=== PATIENT | male | born 1945 | race Caucasian/White ===

== ENCOUNTER → 2016-07-10 | Outpatient (CLI) | payer MEDICARE, OTHER ==
[~2016-07-10] MED LIST: ALFU10TA2 PO; B-COINJ IJ; CODCAP PO; GINK40TA3 PO; HYDR25TAB PO; METF500T PO; SALM1000 PO; SAW450CA7 PO; SIMV40TA2 PO; UROXATRAL PO; VITA100037 PO
--- NOTE | 2016-07-10 14:16 | REP ---
WHOLE BODY BONE SCAN: Following the intravenous administration of 22 millicuries technetium 99m MDP, the patient's whole body is imaged in the anterior and posterior projections with additional oblique images of the thoracic and pelvic regions performed as well as lateral views of the calvarium. Recent MRI of the cervical spine showed possible metastatic lesions in the C6 and C7 vertebral bodies. On the lateral views of the calvarium, there does appear to be increased uptake in the lower cervical spine suspicious for metastatic lesion in the left iliac bone. There is somewhat elongated heterogenous increased uptake in the posterior left 9th rib suspicious for metastatic lesion. Increased uptake is seen in the medial aspect of both clavicles, which may be related to arthritic change but underlying metastatic lesions cannot be completely excluded. There is increased uptake at both shoulders suggesting bilateral arthritic change. There is a small focus of increased uptake in the right maxilla, which is most likely related to the patient's dentition. Renal and bladder activity are seen. IMPRESSION: Increased uptake in the lower cervical spine may represent metastatic lesions as seen on the MRI of the cervical spine recently. Increased uptake in the posterior left 9th rib and medial left iliac bone suspicious for metastatic lesions. Increased uptake in the medial aspect of both clavicles probably is related to arthritic change at the sternoclavicular joints, although the uptake is somewhat intense and underlying metastatic lesion cannot be completely excluded. Signed by Gilson Qureshi MD 07/10/2016 08:02 P
== END ==
LOC: M RAD 09:30
PROVIDERS: ATTEND Emergency Medicine
DX: R93.7 Abnormal findings on diagnostic imaging of other parts of musculoskeletal system (principal)
CPT/HCPCS: 78306; A9503

== ENCOUNTER 2016-09-15 13:56 | Outpatient (RCR) | payer MEDICARE, OTHER ==
[~2016-09-15 13:56] MED LIST changes: -ATEN25TA PO; -ATIV1TAB10 PO; -DEXA4TA PO; -GABA-282 PO; -HYOS1TAB PO; -MORP15TASA PO; -MORP1SOL PO; -TRAM50TA2 PO; -VOTRIENT; -VOTRIENT PO
--- NOTE | 2016-09-15 14:31 | RADONC ---
RADIATION ONCOLOGY SIMULATION NOTE DATE: 09/15/2016 CHART NUMBER: [id number] Mr. Diaz was taken to the CT scan for CT simulation of his cervical/upper thoracic spine. CT was accomplished without difficulty or discomfort. Radiation treatment planning is underway, and radiation treatments will begin subsequently. In addition, the patient underwent CT simulation of his bilateral femur mckeon today as well. CT of these areas was completed without difficulty or discomfort. Radiation treatment planning is also underway to these areas and will continue as scheduled. An immobilization device was created and will be used throughout the course of treatment. I was physically present throughout the course of CT simulation of both sites.
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
--- NOTE | 2016-09-21 16:03 | RADONC ---
RADIATION ONCOLOGY PROGRESS NOTE DATE: 09/21/2016 CHART NUMBER: [id number] Mr. Diaz is presently at a dose of 900 cGy to his spine and bilateral femurs and is tolerating treatments quite well at this point with no complaints related to his radiation therapy. He is having no nausea, vomiting or other problems. He continues to have back and hip pain. The patient's review of systems is positive for the physical limitations secondary to bone pain but is otherwise noncontributory. He denies nausea, vomiting, fevers, chills, night sweats, diplopia, headaches, anxiety or depression, anorexia, weight loss, visual disturbances, chest pain, urinary or bowel difficulties, bone pain, or neurological problems. PHYSICAL EXAMINATION: The patient's skin is in good condition with no evidence of radiation change present. There is no moist dry desquamation. The remainder of his physical exam remains unchanged. I had a lengthy discussion with the patient and his regarding the advanced nature of his disease and the risk for bone breaking. 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 I have showed him actual x-rays to show the extent of disease and the risks to each of his bones. We also discussed the possibility of palliative care at this point. He is aware that this treatment is not curative. The patient overall is tolerating treatments quite well and radiation will continue as scheduled. I discussed not treating the patient's hip as we do not wish to delay further his systemic treatment. The patient's hip and other bones can be treated at anytime in the future if he so chooses.
== END 2016-09-28 ==
LOC: M ONCR 13:56
PROVIDERS: ATTEND Radiology Radiation Oncology
DX: C79.51 Secondary malignant neoplasm of bone (principal); C64.1 Malignant neoplasm of right kidney, except renal pelvis

== ENCOUNTER → 2016-09-15 | Outpatient (CLI) | payer MEDICARE, OTHER ==
[~2016-09-15] MED LIST changes: +ATEN25TA PO; +ATIV1TAB10 PO; +DEXA4TA PO; +GABA-282 PO; +HYOS1TAB PO; -METF500T PO; +METF500T13 PO; +MORP15TASA PO; +MORP1SOL PO; +SAW450CA2 PO; -SAW450CA7 PO; +TRAM50TA2 PO; -VITA100037 PO; +VITA100067 PO; +VOTRIENT; +VOTRIENT PO
--- NOTE | 2016-09-29 07:47 | RADONC ---
RADIATION ONCOLOGY PROGRESS NOTE DATE: 09/28/2016 CHART NUMBER: [id number] Mr. Diaz is presently at a dose of 2400 cGy to his spine as well as is bilateral femurs and is tolerating treatments quite well at this point with no significant difficulties related to his radiation therapy other than some esophagitis. The patient's review of systems is positive for some discomfort upon swallowing as well as bone pain causing him physical limitations, but is otherwise noncontributory. He denies nausea, vomiting, fevers, chills, night sweats, diplopia, headaches, anxiety or depression, anorexia, weight loss, visual disturbances, chest pain, urinary or bowel difficulties, bone pain, or neurological problems. PHYSICAL EXAMINATION: The patient's skin is in good condition with no evidence of moist or dry desquamation. The remainder of his physical exam remains unchanged. Mr. Diaz is tolerating treatments quite well and radiation will continue as scheduled.
== END ==
LOC: M ONCR 09:51
PROVIDERS: ATTEND Radiology Radiation Oncology
DX: C64.9 Malignant neoplasm of unspecified kidney, except renal pelvis (principal)

== ENCOUNTER → 2016-09-15 | Outpatient (CLI) | payer MEDICARE, OTHER | LOC: M RAD 13:50 | PROVIDERS: ATTEND Radiology Radiation Oncology | DX: C64.9 Malignant neoplasm of unspecified kidney, except renal pelvis (principal) ==

== ENCOUNTER 2016-09-29 11:24 | Outpatient (RCR) | payer MEDICARE, OTHER ==
--- NOTE | 2016-09-30 15:27 | RADONC ---
RADIATION ONCOLOGY TREATMENT SUMMARY: DATE: 09/30/2016 CHART NUMBER: [id number] DIAGNOSIS: Renal cell cancer. STAGE: IV. ECOG PERFORMANCE STATUS: 3 Mr. 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 We treated the patient to his spine from the levels of C2-T4 for a dose of 3000 cGy delivered in 10 fractions of 300 cGy each over 13 elapsed days from 09/17/2016 through 09/30/2016. The patient's spine was treated on the linear accelerator utilizing an 18 MV photon beam via single posterior field prescribed to a depth of 8 cm. In addition, we treated to the patient to his bilateral femurs and pelvis for a dose of 3000 cGy delivered in 10 fractions of 300 cGy each again over 13 elapsed days from 09/17/2016 through 09/30/2016. Mr. Diaz tolerated his treatments quite well with no significant difficulties related to his radiation therapy. He was able to complete therapy as prescribed without interruption. Mr. Diaz is scheduled to be seen at [facility] for initiation of his systemic therapy. I have scheduled the patient to see me again in routine followup in 1 month. Thank you for allowing us to participate in the care of this very pleasant gentleman. If I could be of any further assistance please feel to contact me at anytime. As always warm regards, cc: MD Jak Agrawal MD Timothy Damron, MD Michael Kuettell, MD Rahul Seth,
== END 2016-10-29 ==
LOC: M ONCR 11:24
PROVIDERS: ATTEND Radiology Radiation Oncology
DX: C79.51 Secondary malignant neoplasm of bone (principal); C64.1 Malignant neoplasm of right kidney, except renal pelvis

== ENCOUNTER 2016-11-09 11:48 | Inpatient (IN) | payer MEDICARE, OTHER ==
[~2016-11-09] VITALS: Ht 161.3 cm; Wt 87.3 kg
[2016-11-09] MEDS ORDERED: VOTRIENT (12:02)
[2016-11-09] MEDS ORDERED: TRAM50TA2 PO (12:02)
[2016-11-09] MEDS ORDERED: GABA-282 PO (12:02)
[2016-11-09] MEDS ORDERED: NS 1,000 ML IV ONE (12:45)
[2016-11-09 13:39] LABS: BASO % 0.4 % (0.0-1.0); EOS % 0.7 % (0.0-3.0); LARGE UNSTAINED CELL # 0.1 K/mm3 (0.0-0.4); LYMPH # 0.3 K/mm3 (1.5-4.5); LYMPH % 4.8 % (24.0-44.0); MEAN CORPUSCULAR HEMOGLOBIN 30.5 pg (27.0-33.0); MEAN CORPUSCULAR HGB CONC 33.7 g/dl (32.0-36.5); MEAN CORPUSCULAR VOLUME 90.4 fl (80.0-96.0); MONO # 0.3 K/mm3 (0.0-0.8); NEUTROPHILS # 5.4 K/mm3 (1.8-7.7); NEUTROPHILS % 88.1 % (36.0-66.0); PLATELET COUNT, AUTOMATED 162 k/mm3 (150-450); RED CELL DISTRIBUTION WIDTH 15.8 % (11.5-14.5); WHITE BLOOD COUNT 6.1 K/mm3 (4.0-10.0)
--- NOTE | 2016-11-09 13:58 | REP ---
Clinical: History of metastatic renal carcinoma with dysuria. Comparison: 08/07/2016. Findings: Lung bases demonstrate bibasilar atelectasis and osseous metastatic disease involving the left ninth and eighth ribs as well as the inferior margin of the left scapula which appear more pronounced than prior examination. Liver, spleen, pancreas, gallbladder, bilateral adrenal glands are normal. Right renal mass measures 3.3 cm and appears essentially unchanged. Kidneys demonstrate perinephric stranding along with 2-3 mm nonobstructing intrarenal calculi. The enteric system is without obstruction or acute inflammatory process. Diverticulosis appreciated without acute diverticulitis. Pelvis demonstrates normal bladder and age appropriate prostate/seminal vesicles. No obvious intra-abdominal or pelvic adenopathy is appreciated. No ascites. No free air. Osseous metastatic foci involving T12, L3, the right lamina of L4, right iliac bone, left iliac bone/pelvis, left proximal femur, bilateral acetabula, right proximal femur have all significantly worsened. Specifically, the metastatic lesion in the T12 vertebral body extends through the posterior contour and into the spinal canal and the left iliac lesion measures greater than 11 cm and involves the adjacent musculature. Impression: 1. Markedly worsened metastatic disease related to right renal cell carcinoma as detailed above including a metastatic focus of the T12 body extending into the spinal canal. 2. Bilateral nonobstructing renal calculi. Right renal cell carcinoma. No hydronephrosis. 3. Diverticulosis without acute diverticulitis. 4. Bibasilar atelectasis. Signed by Kirill Rodriguez MD 11/09/2016 01:49 P
[2016-11-09 14:00] LABS: ALBUMIN/GLOBULIN RATIO 0.77 (1.00-1.93); ALKALINE PHOSPHATASE 99 U/L (45-117); ALT/SGPT 19 U/L (12-78); ANION GAP 10 MEQ/L (8-16); AST/SGOT 38 U/L (15-37); BILIRUBIN,DIRECT 0.3 MG/DL (0.0-0.2); BILIRUBIN,TOTAL 0.7 MG/DL (0.2-1.0); BLOOD UREA NITROGEN 16 MG/DL (7-18); CALCIUM LEVEL 9.1 MG/DL (8.8-10.2); CARBON DIOXIDE LEVEL 30 MEQ/L (21-32); CHLORIDE LEVEL 97 MEQ/L (98-107); GLOMERULAR FILTRATION RATE > 60.0 (>42); GLUCOSE, FASTING 163 MG/DL (83-110); POTASSIUM SERUM 3.2 MEQ/L (3.5-5.1); SODIUM LEVEL 137 MEQ/L (136-145); TOTAL PROTEIN 6.9 GM/DL (6.4-8.2)
[2016-11-09] MEDS ORDERED: VOTRIENT PO (14:20)
[2016-11-09] MEDS ORDERED: HYDR25TAB PO (14:20)
[2016-11-09] MEDS ORDERED: ATEN25TA PO (14:20)
[2016-11-09] MEDS ORDERED: MORPHINE 4 MG/ML 1ML SYRINGE IV ONE (15:00)
--- NOTE | 2016-11-09 17:20 | HPEPDOC ---
General Date of Admission 11/09/16 Primary Care Physician: DERRICK CARBAJAL MD Attending Physician: MARY GIRALDO Chief Complaint The patient is a 71-year-old male admitted with a reason for visit of Urinary Issue. History of Present Illness 71-year-old male with past medical history of widely metastatic clear cell renal carcinoma for which the patient follows with Dr. Nelson of radiation oncology for palliative radiation, and is also receiving palliative chemotherapy. The patient presented to the ER with a chief complaint of increased weakness and dysuria. The patient states that he had been up multiple times at night trying to urinate, but was unable to do so. He denies any flank pain, fevers, chills, chest pain, shortness of breath, palpitations, abdominal pain, or any nausea/vomiting/diarrhea. He also denied any complaints of fecal incontinence, saddle anesthesia, or any other numbness/tingling or focal weakness. In the ER, a CT scan of the abdomen revealed markedly worsened metastatic disease related to right renal cell carcinoma including a metastatic focus of the T12 body extending into the spinal canal. There were also bilateral nonobstructing renal calculi noted with no hydronephrosis. The patient was able to void ~300 cc's of urine in the ER without any difficulty. Dr. Nelson of radiation oncology was contacted with these results, and has requested an MRI of the lumbar spine with T12 imaging. Home Medications Scheduled ([place] Oil-1000 200 mg) 1 Cap Cap, 1 CAP PO DAILY, (Reported) Alfuzosin Hydrochloride (Alfuzosin HCl ER) 10 Mg Tab, 10 MG PO DAILY, (Reported) Atenolol (Atenolol) 25 Mg Tab, 25 MG PO DAILY, (Reported) Cod Liver Oil (Cod Liver Oil) 1 Cap Cap, 1 CAP PO DAILY, (Reported) Gabapentin (Gabapentin) 300 Mg Cap, 300 MG PO TID, (Reported) Ginkgo Biloba Extract (Ginkoba) 40 Mg Tab, 60 MG PO DAILY, (Reported) Hydrochlorothiazide (Hydrochlorothiazide) 25 Mg Tab, 25 MG PO DAILY, (Reported) Metformin Hydrochloride (Metformin HCl) 500 Mg Tab, 500 MG PO BID, (Reported) Serenoa Repens (Saw Bowdle/S (Saw Bowdle) 450 Mg Cap, 450 MG PO DAILY, ( Reported) Simvastatin - High Dose (Simvastatin) 40 Mg Tab, 40 MG PO QHS, (Reported) [Votrient] , 200 MG PO QID, (Reported) Scheduled PRN Tramadol HCl (Tramadol HCl) 50 Mg Tab, 50 MG PO QID PRN for PAIN, (Reported) Miscellaneous Medications Vitamin D (Vitamin D) 1,000 Unit Cap, 1,000 UNIT PO, (Reported) Allergies Coded Allergies: Nitroglycerin (Verified Allergy, Unknown, 11/09/16) Past Medical History Medical History As noted in HPI. Family History Significant Family History: No pertinent family hx Social History * Smoker: Denies Alcohol: Denies Drugs: denies Lives at home with his . Is functionally independent at baseline. Review of Symptoms Other systems 10 point review of systems negative unless otherwise specified in HPI. Physical Examination General Exam: Positive: Alert, Cooperative, No Acute Distress ENT Exam: Positive: Atraumatic, Mucous membr. moist/pink Neck Exam: Negative: JVD Chest Exam: Positive: Clear to auscultation, Normal air movement Heart Exam: Positive: Rate Normal, Normal S1 Abdomen Exam: Positive: Soft, Negative: Tenderness Extremity Exam: Negative: Tenderness, Swelling Psych Exam: Positive: Oriented x 3 Vital Signs Vital Signs Date Time Temp Pulse Resp B/P (MAP) Pulse Ox O2 Delivery O2 Flow Rate FiO2 11/09/16 15:02 18 Room Air 11/09/16 14:36 98.6 60 122/71 (88) 96 Laboratory Data Labs 24H Laboratory Tests 2 11/09/16 12:51: Lactic Acid Level 2.7*H 11/09/16 12:52: White Blood Count 6.1, Red Blood Count 4.25L, Hemoglobin 13.0L, Hematocrit 38.4L , Mean Corpuscular Volume 90.4, Mean Corpuscular Hemoglobin 30.5, Mean Corpuscular Hemoglobin Concent 33.7, Red Cell Distribution Width 15.8H, Platelet Count 162, Neutrophils (%) (Auto) 88.1H, Lymphocytes (%) (Auto) 4.8L, Monocytes (%) (Auto) 5.0, Eosinophils (%) (Auto) 0.7, Basophils (%) (Auto) 0.4, Neutrophils # (Auto) 5.4, Lymphocytes # (Auto) 0.3L, Monocytes # (Auto) 0.3, Eosinophils # (Auto) 0.0, Basophils # (Auto) 0.0, Large Unclassified Cells % 1.0 , Large Unclassified Cells # 0.1, Urine Appearance TURBIDH, Urine Color YELLOW, Urine pH 5.0, Urine Specific [place] 1.023, Urine Protein NEGATIVE, Urine Glucose (UA) NEGATIVE, Urine Ketones NEGATIVE, Urine Urobilinogen 2.0H, Urine Bilirubin NEGATIVE, Urine Leukocyte Esterase NEGATIVE, Urine Blood NEGATIVE, Urine Nitrite NEGATIVE, Urine WBC (Auto) 1, Urine RBC (Auto) 1, Urine Hyaline Casts (Auto) 0, Urine Bacteria (Auto) 3+H, Urine Squamous Epithelial Cells 0, Urine Mucus (Auto) LARGE, Urine Sperm (Auto) , Anion Gap 10, Glomerular Filtration Rate > 60.0, Calcium Level 9.1, Aspartate Amino Transf (AST/SGOT) 38H , Alanine Aminotransferase (ALT/SGPT) 19, Alkaline Phosphatase 99, Total Bilirubin 0.7, Direct Bilirubin 0.3H, Total Protein 6.9, Albumin 3.0L, Albumin/ Globulin Ratio 0.77L CBC/BMP Laboratory Tests 11/09/16 12:52 Red Blood Count 4.25 L, Mean Corpuscular Volume 90.4, Mean Corpuscular Hemoglobin 30.5, Mean Corpuscular Hemoglobin Concent 33.7, Red Cell Distribution Width 15.8 H, Neutrophils (%) (Auto) 88.1 H, Lymphocytes (%) (Auto ) 4.8 L, Monocytes (%) (Auto) 5.0, Eosinophils (%) (Auto) 0.7, Basophils (%) ( Auto) 0.4, Neutrophils # (Auto) 5.4, Lymphocytes # (Auto) 0.3 L, Monocytes # ( Auto) 0.3, Eosinophils # (Auto) 0.0, Basophils # (Auto) 0.0 Microbiology Microbiology 11/09/16 Blood Culture, Received Pending 11/09/16 Blood Culture, Received Pending 11/09/16 Urine Culture, Received Pending Plan / VTE VTE Prophylaxis Ordered?: Yes Plan Plan Weakness 2/2 Widely Metastatic Renal Cell Carcinoma with Metastatic Focus of T12 CT Abd/Pel noted MRI L Spine, T12 ordered in the ER Dr. Nelson to consider further palliative radiation treatment No fecal incontinence, saddle anesthesia or other signs of cauda equina noted We will follow up with MRI results and Rad/Onc recommendations DVT Prophylaxis Heparin SC Poor Printing Screen Assembler Prognosis--PFS and Hospice consulted The patient will be admitted under the service of Dr. Giraldo, who will begin to follow the patient on 11/10/16 at 7 AM. LIANA GRADY MD Nov 09, 2016 17:20
--- NOTE | 2016-11-09 17:40 | REP ---
MRI LUMBAR SPINE WITHOUT AND WITH CONTRAST: 11/09/2016. Clinical history: Metastatic renal carcinoma. Abnormal T12 on CT. Technique: Sagittal T1, T2 and STIR images with axial T1 and T2 sequences. Following infusion of 17.4 ml of ProHance, axial T1 and fat suppressed T1 sagittal images were obtained. Findings: The normal lordosis of the lumbar spine is slightly reduced. There is disc space narrowing at the L3-4 level. Loss of disc water signal and discogenic endplate changes. There is slight disc space narrowing at L5-S1, the other three disc levels maintain height and water signal. Vertebral body show discogenic endplate changes at L3-4. There is hyperintense T1 and T2 focus in the lower aspect of the L4 vertebral body consistent with hemangioma. However, there is a hypointense focus in the right lateral aspect of L3, which is hyperintense on T2 and STIR images and which enhances with gadolinium peripherally consistent with a lytic lesion. Surrounding marrow edema noted in much of that vertebral body. An even larger similar lesion filling much of the T12 vertebral body is seen posteriorly and towards the right. This extends into the neural canal with just a very minimal bulge. No spinal stenosis. The conus terminates at the upper aspect of L1. There is hypertrophic facet change at L3-4 through L5-S1. There is a broad-based disc bulge flattening ventral thecal sac at L3-4 with some facet arthropathy. No definite spinal stenosis. Some foraminal narrowing with loss of perineural fat on both sides at this level due to combined factors, but not associated with a metastatic lesion. The L4-5 level is without spinal or foraminal stenosis. At L5-S1, there is a broad-based disc bulge abutting the S1 nerve roots, but not causing central canal stenosis. The foramina show some loss of perineural fat without nerve root compression. Impression: 1. There is evidence for metastatic disease at two levels, T12 and L3. The lesion is larger at T12 towards the right and posterior extending through the cortex posteriorly with slight bulge against the thecal sac, not causing any spinal stenosis or foraminal encroachment. No compression fracture. 2. The right side of the L3 vertebral body has a similar but slightly smaller lesion with enhancement pattern consistent with metastatic disease. 3. There is a lesion in the L4 vertebral body which is a benign hemangioma. I do not see other areas of metastatic disease. 4. Mild foraminal encroachment at L3-4 due to combined factors of broad-based disc bulge with ligamentum and facet hypertrophy. Signed by Jarrett Gates MD 11/10/2016 09:59 A
[2016-11-09] MEDS ORDERED: DEXTROSE 50% 50 ML SYRINGE IV PRN (18:00)
[2016-11-09] MEDS ORDERED: GLUCOSE 4 GM CHEW TABLET PO PRN (18:00)
[2016-11-09] MEDS ORDERED: PERCOCET 5MG/325MG TAB PO PRN ×2 (18:00)
[2016-11-09] MEDS ORDERED: traMADol 50 MG TAB PO PRN (18:00)
[2016-11-09] MEDS ORDERED: ACETAMINOPHEN TAB 650MG DOSE (2X325MG) PO PRN (18:00)
[2016-11-09] MEDS ORDERED: ONDANSETRON 4MG/2ML VIAL (J2405) IV PRN (18:00)
[2016-11-09] MEDS ORDERED: GLUCAGON FOR INJ 1 MG VIAL (J1610) SC PRN (18:00)
[2016-11-09] MEDS ORDERED: POTASSIUM CHLORIDE 10 MEQ SR TABLET PO ONE (19:00)
[2016-11-09] MEDS: MORPHINE 2 MG/ML 1ML SYRINGE IV PRN (19:58)
[2016-11-09 20:26] VITALS: BP 127/72
[2016-11-09] MEDS ORDERED: SIMVASTATIN 40 MG TAB PO SCH (21:00)
[2016-11-09] MEDS ORDERED: HumaLOG INSULIN (NovoLOG) PER UNIT SC SCH (21:00)
[2016-11-09 21:30] VITALS: BP 127/72
[2016-11-09] MEDS: HEPARIN SOD (PORCINE) 5000 UNITS/ML VIAL SC SCH (22:04)
[2016-11-09] MEDS: GABAPENTIN 300 MG CAP PO SCH (22:05)
[2016-11-09] MEDS: NS 1,000 ML IV SCH (22:14)
[2016-11-10] MEDS: HEPARIN SOD (PORCINE) 5000 UNITS/ML VIAL SC SCH (05:50)
[2016-11-10] MEDS: NS 1,000 ML IV SCH (05:51)
[2016-11-10 06:02] VITALS: BP 160/90
[2016-11-10 06:14] VITALS: BP 156/84
[2016-11-10] MEDS: MORPHINE 2 MG/ML 1ML SYRINGE IV PRN ×2 (06:28→11:08)
[2016-11-10 07:12] LABS: MEAN CORPUSCULAR HEMOGLOBIN 30.6 pg (27.0-33.0); MEAN CORPUSCULAR HGB CONC 34.2 g/dl (32.0-36.5); MEAN CORPUSCULAR VOLUME 89.5 fl (80.0-96.0); RED CELL DISTRIBUTION WIDTH 15.8 % (11.5-14.5); WHITE BLOOD COUNT 4.2 K/mm3 (4.0-10.0)
[2016-11-10] MEDS: HumaLOG INSULIN (NovoLOG) PER UNIT SC SCH ×2 (07:30→12:00)
[2016-11-10 07:34] LABS: ALBUMIN 2.4 GM/DL (3.2-5.2); ALBUMIN/GLOBULIN RATIO 0.69 (1.00-1.93); ALKALINE PHOSPHATASE 96 U/L (45-117); ALT/SGPT 17 U/L (12-78); ANION GAP 6 MEQ/L (8-16); AST/SGOT 32 U/L (15-37); BILIRUBIN,TOTAL 0.7 MG/DL (0.2-1.0); BLOOD UREA NITROGEN 11 MG/DL (7-18); CALCIUM LEVEL 8.2 MG/DL (8.8-10.2); CARBON DIOXIDE LEVEL 31 MEQ/L (21-32); CHLORIDE LEVEL 101 MEQ/L (98-107); CREATININE FOR GFR 0.82 MG/DL (0.70-1.30); GLOMERULAR FILTRATION RATE > 60.0 (>42); GLUCOSE, FASTING 106 MG/DL (83-110); POTASSIUM SERUM 3.7 MEQ/L (3.5-5.1); SODIUM LEVEL 138 MEQ/L (136-145); TOTAL PROTEIN 5.9 GM/DL (6.4-8.2)
[2016-11-10 08:00] VITALS: BP 166/83
[2016-11-10] MEDS ORDERED: ATENOLOL 25 MG TAB PO SCH (09:00)
[2016-11-10] MEDS: GABAPENTIN 300 MG CAP PO SCH ×3 (09:30→21:15)
[2016-11-10 09:31] VITALS: BP 166/83
--- NOTE | 2016-11-10 11:26 | CR ---
RADIATION ONCOLOGY CONSULTATION NOTE DATE: 11/10/2016 CHART NUMBER: [id number]. DIAGNOSIS: Renal cell cancer. STAGE: IV, ROSSY stage. ECOG PERFORMANCE STATUS: 4. CONSULTATION NOTE: Mr. Diaz is a 71-year-old male with the diagnosis of end stage widely metastatic clear cell carcinoma consistent with renal cell primary, who is well-known to our department and has now been admitted for severe weakness. He is unable to stand. He also has urinary and bowel incontinence. He continues to have some hip pain as well. Since completion of treatment, the patient started on some systemic therapy but his condition has continued to deteriorate now with increased weakness, urinary and bowel incontinence. The patient has made himself a DO NOT RESUSCITATE and is meeting with hospice later today. Patient and the family appear to be satisfied with the hospice consultation and weigh forward. In light of the patient's reasonable decision to go onto hospice care, I am discharging him from our followup at this point except on an as needed basis. I do not think the patient would benefit greatly from radiation to his hip at this point. Indeed, I think we would be causing him more harm than good. He already has incontinence of bowel and radiation to the intestines probably only worsened his overall difficulties. The patient and his family have my office number as well as cell phone number. I am available if I could be of any hope to them or provide anyone with any information whatsoever. Should the patient change his mind and wish to readdress radiation in the future, I more than would be glad to do so as well. cc: MD Jak Agrawal MD Timothy Damron, MD Michael Kuettell, MD Rahul Seth, DO
[2016-11-10] MEDS ORDERED: SCOPOLAMINE 1.5 MG TRANSDERMAL TD PRN (12:30)
[2016-11-10] MEDS ORDERED: LORazepam 1 MG TAB PO PRN (12:30)
[2016-11-10] MEDS ORDERED: ATIV1TAB10 PO (12:39)
[2016-11-10] MEDS ORDERED: MORP1SOL PO (12:39)
[2016-11-10] MEDS ORDERED: HYOS1TAB PO (12:39)
[2016-11-10] MEDS ORDERED: DEXA4TA PO (12:51)
[2016-11-10] MEDS: MORPHINE 15 MG SA TAB PO SCH ×2 (15:00→22:34)
[2016-11-10] MEDS ORDERED: MIRALAX *UNIT DOSE* 17GM PACKET PO PRN (16:45)
[2016-11-10] MEDS: MORPHINE 10MG/0.5ML ORAL CONCENTRATE SOLUTION U/D SL PRN ×2 (18:37→21:17)
--- NOTE | 2016-11-10 21:24 | IPNPDOC ---
Date Seen The patient was seen on 11/10/16. Progress Note Hospitalist Progress Note Subjective: Patient had considerable pain when he was moved from the bed to go down for radiation Objective: Physical Exam: Vitals: Vital Sign - Last 24 Hours 11/09/16 11/10/16 11/10/16 11/10/16 21:30 00:36 02:02 06:02 Temp 99.0 99.3 Pulse 55 61 Resp 20 18 B/P (MAP) 127/72 (90) 160/90 (113) Pulse Ox 94 94 93 92 O2 Delivery Room Air Room Air Room Air Room Air 11/10/16 11/10/16 11/10/16 11/10/16 06:14 06:28 08:00 09:31 Temp 99.5 Pulse 61 61 Resp 18 18 B/P (MAP) 156/84 (108) 166/83 (110) 166/83 Pulse Ox 92 O2 Delivery Room Air Room Air 11/10/16 11/10/16 11/10/16 11/10/16 11:08 11:18 15:00 18:37 Resp 18 16 16 18 O2 Delivery Room Air Room Air Room Air Room Air 11/10/16 19:07 Resp 16 O2 Delivery Room Air General: Awake, alert, in moderate distress HEENT: Normocephalic, atraumatic, extraocular movements intact CV: Regular rate and rhythm Lungs: Clear To auscultation bilaterally Abd: Soft, nontender, nondistended Extremities: No edema Neuro: Alert and oriented 3, normal speech Psych: Mildly anxious Labs and Imaging: Laboratory Tests 11/10/16 06:36 Red Blood Count 3.68 L, Mean Corpuscular Volume 89.5, Mean Corpuscular Hemoglobin 30.6, Mean Corpuscular Hemoglobin Concent 34.2, Red Cell Distribution Width 15.8 H, Calcium Level 8.2 L, Aspartate Amino Transf (AST/SGOT ) 32, Alanine Aminotransferase (ALT/SGPT) 17, Alkaline Phosphatase 96, Total Bilirubin 0.7, Total Protein 5.9 L, Albumin 2.4 L Assessment and Plan: 71-year-old male with metastatic renal cell carcinoma for which he is receiving palliative chemotherapy and palliative radiation, who presents with increased weakness and difficulty urinating. Imaging reveals worsening metastases extending into his spinal column. After the patient had discussion with Dr. Pelletier today, the patient and family have elected for comfort measures and to pursue going home with hospice. At this time, we have transitioned the patient to comfort measures only. At the recommendation of hospice, we have placed the patient on scheduled Decadron, as well as scheduled MS Cameron to attempt to control his severe bone pain. Hospice is able to arrange for him to go home as early as tomorrow, but we will need to ensure that his pain is able to be controlled with oral medications, as hospice cites concerns that the particular bone pain he is experiencing often is difficult to control. VS, I&O, 24H, Fishbone Vital Signs/I&O Vital Signs Date Time Temp Pulse Resp B/P (MAP) Pulse Ox O2 Delivery O2 Flow Rate FiO2 11/10/16 19:07 16 Room Air 11/10/16 09:31 61 166/83 11/10/16 08:00 99.5 92 I&O- Last 24 Hours up to 6 AM 11/10/16 06:00 Intake Total 1175 ml Output Total 275 ml Balance 900 ml Laboratory Data 24H LABS Laboratory Tests 2 11/09/16 21:55: Bedside Glucose (Misc Panel) 150H 11/10/16 06:36: Anion Gap 6L, Glomerular Filtration Rate > 60.0, Blood Urea Nitrogen 11, Creatinine 0.82, Sodium Level 138, Potassium Level 3.7, Chloride Level 101, Carbon Dioxide Level 31, Calcium Level 8.2L, Aspartate Amino Transf (AST/SGOT) 32, Alanine Aminotransferase (ALT/SGPT) 17, Alkaline Phosphatase 96, Total Bilirubin 0.7, Total Protein 5.9L, Albumin 2.4L, Magnesium Level 2.0, Albumin/ Globulin Ratio 0.69L CBC/BMP Laboratory Tests 11/10/16 06:36 Red Blood Count 3.68 L, Mean Corpuscular Volume 89.5, Mean Corpuscular Hemoglobin 30.6, Mean Corpuscular Hemoglobin Concent 34.2, Red Cell Distribution Width 15.8 H, Calcium Level 8.2 L, Aspartate Amino Transf (AST/SGOT ) 32, Alanine Aminotransferase (ALT/SGPT) 17, Alkaline Phosphatase 96, Total Bilirubin 0.7, Total Protein 5.9 L, Albumin 2.4 L Microbiology Microbiology 11/09/16 Blood Culture - Preliminary, Resulted No growth after 24 hours . All specim... 11/09/16 Blood Culture - Preliminary, Resulted No growth after 24 hours . All specim... 11/09/16 Urine Culture, Received Pending MARY ALVARES Nov 10, 2016 21:24
[2016-11-11] MEDS: MORPHINE 15 MG SA TAB PO SCH ×2 (06:15→13:00)
[2016-11-11] MEDS ORDERED: INFLUENZA VIRUS VACCINE HIGH DOSE 0.5 ML SYRINGE (90662) IM ONE (09:00)
[2016-11-11] MEDS: MORPHINE 10MG/0.5ML ORAL CONCENTRATE SOLUTION U/D SL PRN (09:07)
[2016-11-11] MEDS: GABAPENTIN 300 MG CAP PO SCH (09:07)
[2016-11-11] MEDS ORDERED: MORP15TASA PO (11:28)
--- NOTE | 2016-11-11 15:06 | DS.PDOC ---
Discharge Summary General Date of Admission Nov 09, 2016 at 17:57 Date of Discharge 11/11/2016 Discharge Summary DISCHARGE SUMMARY DATE OF ADMISSION: 11/09/2016 DATE OF DISCHARGE: 11/11/2016 PRIMARY CARE PHYSICIAN: Dr. Jaycob Astudillo DISCHARGE DIAGNOS(E)S: Metastatic renal cell carcinoma HPI & HOSPITAL COURSE: 71-year-old male with metastatic renal cell carcinoma for which he is receiving palliative chemotherapy and palliative radiation, who presented with increased weakness and difficulty urinating. Imaging reveals worsening metastases extending into his spinal column. After the patient had discussion with Dr. Pelletier, the patient and family have elected for comfort measures and to pursue going home with hospice. At this time, we have transitioned the patient to comfort measures only. At the recommendation of hospice, we have placed the patient on scheduled Decadron, as well as scheduled MS Contin to attempt to control his severe bone pain. He is going home with hospice today. PHYSICAL EXAMINATION ON DISCHARGE: VITAL SIGNS: Reviewed in EMR General: Sleeping but easily awoken, no acute distress HEENT: Normocephalic, atraumatic, extraocular movements intact CV: Regular rate and rhythm Lungs: Clear To auscultation bilaterally Abd: Soft, nontender, nondistended Extremities: No edema Neuro: Alert and oriented 3, normal speech Psych: calm DISPOSITION: Home with hospice DISCHARGE INSTRUCTIONS: Maintain Swartz catheter for comfort. ITEMS THAT NEED OUTPATIENT FOLLOWUP: None Patient was seen and examined by me on the day of discharge, and I spent a total time of greater than 30 minutes on this discharge. Vital Signs/I&Os Vital Signs Date Time Temp Pulse Resp B/P (MAP) Pulse Ox O2 Delivery O2 Flow Rate FiO2 11/11/16 13:00 18 11/10/16 19:07 Room Air 11/10/16 09:31 61 166/83 11/10/16 08:00 99.5 92 I&O- Last 24 Hours up to 6 AM 11/11/16 06:00 Output Total 925 ml Balance -925 ml Microbiology Microbiology 11/09/16 Blood Culture - Preliminary, Resulted No Growth after 48 hours. All Specime... 11/09/16 Blood Culture - Preliminary, Resulted No Growth after 48 hours. All Specime... 11/09/16 Urine Culture, Received Pending Discharge Medications Scheduled Dexamethasone (Dexamethasone) 4 Mg Tab, 4 MG PO BID Gabapentin (Gabapentin) 300 Mg Cap, 300 MG PO TID, (Reported) Morphine Sulfate (Morphine Sulfate ER) 15 Mg Tabcr, 15 MG PO Q8H Scheduled PRN Hyoscyamine Sulfate (Hyoscyamine Sulfate Odt) 0.125 Mg Tab, 0.125 MG PO Q4HP PRN for TERMINAL SECRETIONS Lorazepam (Ativan) 0.5 Mg Tab, 0.5 MG PO Q4HP PRN for ANXIETY/AGITATION Morphine Sulfate (Morphine Sulfate Concentrate) 10 Mg/0.5 Ml Conc, 0.25-1 ML PO Q2H PRN for PAIN OR DYSPNEA Use sublingually if unable to swallow Allergies Coded Allergies: Nitroglycerin (Verified Allergy, Unknown, 11/09/16) MARY ALVARES Nov 11, 2016 15:06
== END 2016-11-11 13:25 | disposition home or self-care (01) | DRG 543 ==
LOC: M ED 11:48 → M ED INP 17:57 → M MS4PR 20:26
PROVIDERS: ADMIT Internal Medicine; ATTEND Hospitalist
DX: C79.51 Secondary malignant neoplasm of bone (principal); C64.9 Malignant neoplasm of unspecified kidney, except renal pelvis; N20.0 Calculus of kidney; Z51.5 Encounter for palliative care; Z66 Do not resuscitate; Z79.899 Other long term (current) drug therapy; Z88.8 Allergy status to other drugs, medicaments and biological substances; Z79.84 Long term (current) use of oral hypoglycemic drugs; Z92.21 Personal history of antineoplastic chemotherapy; Z92.3 Personal history of irradiation; R53.1 Weakness; G89.3 Neoplasm related pain (acute) (chronic)